=== PATIENT | male | born 1985 | race Two or more races ===

== ENCOUNTER 2024-05-15 09:03 | Emergency (ER) | payer OTHER ==
[~2024-05-15] VITALS: Ht 182.9 cm; Wt 93.0 kg
[2024-05-15] MEDS ORDERED: NORVASC5 MG PO (09:33)
[2024-05-15] MEDS ORDERED: ATACAND16 MG (09:33)
[2024-05-15] MEDS ORDERED: BARIUM SULFATE 450 ML ORAL.SUSP PO ONE (09:51)
[2024-05-15 10:26] LABS: HEMATOCRIT 42.1 % (39.0-48.0); HEMOGLOBIN 14.3 g/dL (13-16.00); MEAN CELL VOLUME 90.9 fL (80.0-100.00); MEAN CORPUSCULAR HEMOGLOBIN 30.9 pg (27.00-32.0); PLATELET COUNT 221 K/uL (150-450); RED BLOOD COUNT 4.63 M/uL (4.00-6.00); RED CELL DISTRIBUTION WIDTH 14.6 % (11.5-14.5)
[2024-05-15 11:03] LABS: CALCIUM 9.2 mg/dL (8.5-10.1); CREATININE SERUM 1.06 mg/dL (0.70-1.30); GFR 78.19; POTASSIUM 3.99 mEq/L (3.5-5.1)
[2024-05-15 11:07] LABS: URINE APPEARANCE Clear; URINE BILIRRUBIN Negative (NEGATIVE); URINE BLOOD Negative; URINE COLOR Yellow; URINE GLUCOSE Negative (NEGATIVE); URINE LEUKOCYTE Negative; URINE NITRATE Negative; URINE PROTEIN Negative (NEGATIVE); URINE UROBILINOGEN 0.2 E.U./dl
[2024-05-15 11:11] LABS: URINE BACTERIA 7.5 uL (0.0-1933)
[2024-05-15 11:17] LABS: URINE EPITHELIAL CELLS 0.3 uL (0.0-38.8); URINE WBC 1.2 uL (0.0-23.2)
[2024-05-15] MEDS ORDERED: CIPROFLOXACIN IN 5 % DEXTROSE 400 MG/200 ML PIGGYBAG IV ONE ×2 (14:26→14:30)
[2024-05-15] MEDS ORDERED: METRONIDAZOLE/SODIUM CHLORIDE 500 MG/100 ML PIGGYBACK IV ONE ×2 (14:26→14:30)
== END 2024-05-15 16:53 | disposition home or self-care (01) ==
LOC: ER 09:04
PROVIDERS: Emergency Medicine
DX: R10.9 Unspecified abdominal pain (principal); I10 Essential (primary) hypertension; Z88.5 Allergy status to narcotic agent
CPT/HCPCS: 36415; 74177; Q9965